=== PATIENT | male | born 1990 | race Caucasian/White ===

== ENCOUNTER 2018-08-18 22:40 | Emergency (ER) | payer MEDICAID ==
[~2018-08-18] VITALS: Ht 162.6 cm; Wt 70.0 kg
[2018-08-19 07:20] VITALS: BP 123/80
== END 2018-08-19 07:20 | disposition home or self-care (01) ==
LOC: ER 22:40
DX: S02.2XXA Fracture of nasal bones, initial encounter for closed fracture (principal); F10.129 Alcohol abuse with intoxication, unspecified; Z88.8 Allergy status to other drugs, medicaments and biological substances; W22.8XXA Striking against or struck by other objects, initial encounter; Y93.89 Activity, other specified; Y92.89 Other specified places as the place of occurrence of the external cause; Y99.8 Other external cause status; Y90.9 Presence of alcohol in blood, level not specified
CPT/HCPCS: 36415; 70486; 80320; 99284; G0480

== ENCOUNTER 2018-10-15 12:05 | Emergency (ER) | payer MEDICAID ==
[~2018-10-15] VITALS: Ht 170.2 cm; Wt 80.0 kg
[2018-10-15 14:47] VITALS: BP 119/68
== END 2018-10-15 16:03 | disposition left against medical advice (07) ==
LOC: ER 13:02
DX: F10.129 Alcohol abuse with intoxication, unspecified (principal); Y90.8 Blood alcohol level of 240 mg/100 ml or more
CPT/HCPCS: 36415; 80320; 99283; G0480

== ENCOUNTER 2018-10-15 19:21 | Emergency (ER) | payer MEDICAID ==
[~2018-10-15] VITALS: Ht 167.6 cm; Wt 71.0 kg
[2018-10-15 21:47] VITALS: BP 138/91
== END 2018-10-15 21:54 | disposition left against medical advice (07) ==
LOC: ER 19:21
DX: Z53.21 Procedure and treatment not carried out due to patient leaving prior to being seen by health care provider (principal)

== ENCOUNTER 2018-10-15 23:36 | Emergency (ER) | payer MEDICAID ==
[~2018-10-15] VITALS: Ht 172.7 cm; Wt 59.0 kg
[2018-10-15 23:39] VITALS: BP 140/83
== END 2018-10-16 02:51 | disposition left against medical advice (07) ==
LOC: ER 23:36
DX: F41.9 Anxiety disorder, unspecified (principal); Z53.21 Procedure and treatment not carried out due to patient leaving prior to being seen by health care provider

== ENCOUNTER 2018-10-16 02:52 | Emergency (ER) | payer MEDICAID ==
[~2018-10-16] VITALS: Ht 175.3 cm; Wt 70.0 kg
[2018-10-16 07:12] VITALS: BP 92/61
== END 2018-10-16 07:58 | disposition home or self-care (01) ==
LOC: ER 03:09
DX: F10.129 Alcohol abuse with intoxication, unspecified (principal); Y90.9 Presence of alcohol in blood, level not specified
CPT/HCPCS: 99283